=== PATIENT | female | born 1935 | race Hispanic/Latino ===

== ENCOUNTER 2017-06-24 07:55 | Day surgery (SDC) | payer MEDICARE, OTHER ==
[2017-06-16 08:30] VITALS: BMI 30.2
[~2017-06-24 07:55] MED LIST: Lactated Ringer's 500 ML IV ONE; Phenylephrine 2.5% Opht Soln OD SCH; Tropicamide 1% Opht SOLUTION OD SCH
[2017-06-24] MEDS ORDERED: Lactated Ringer's 500 ML IV ONE (08:53)
[2017-06-24] MEDS: Carbachol 0.01% IO ONE ×2 (09:41→10:15)
[2017-06-24] MEDS: Lidocaine 2% Inj (20ml) ONE ×2 (09:41→10:00)
[2017-06-24] MEDS: Hyaluronidase Human, Recombi 150 U/ML VIAL ONE ×2 (09:41→10:00)
[2017-06-24] MEDS: Tetracaine 0.5% Ophth (OR ONLY) ONE ×2 (09:41→10:00)
[2017-06-24] MEDS: Chondroitin/Hyaluronate Opth Syringe KIT (0.55 ml-0.5 ml) IO ONE ×2 (09:42→10:15)
[2017-06-24] MEDS: Tobramycin/Dexamethasone OPHT OINT ONE ×2 (09:42→10:15)
[2017-06-24] MEDS: Povidone Iodine Ophthalmic 5% Soln ONE ×2 (09:42→10:00)
[2017-06-24] MEDS: Chondroitin/Hyaluronate 40 mg/ml-30 mg/ml Ophth Syringe (0.5 ml) IO ONE ×2 (10:15→10:49)
[2017-06-24] MEDS ORDERED: Midazolam 2 MG/2 ML VIAL ONE (10:21)
[2017-06-24] MEDS ORDERED: Propofol 10 mg/ml Inj (20 ML) ONE (10:32)
[2017-06-24] MEDS ORDERED: Chondroitin/Hyaluronate 40 mg/ml-30 mg/ml Ophth Syringe (0.5 ml) IO ONE (10:43)
[2017-06-24 11:37] VITALS: RESP 18
[2017-06-24 12:21] VITALS: BP 110/59; PULSE 79; TEMP 98.4; O2SAT 98
--- NOTE | 2017-06-24 13:17 | OP ---
PROCEDURE DATE: 06/24/2017 PREOPERATIVE DIAGNOSIS: Hypermature cataract, right eye. POSTOPERATIVE DIAGNOSIS: Hypermature cataract, right eye. PROCEDURE: Complex extract extraction with VisionBlue, right eye for hypermaturity. SURGEON: Nikos Kelsey MD ESTIMATED BLOOD LOSS: 0 mL. PROCEDURE IN DETAIL: The patient was brought to the operating room and properly identified. Anesthesia staff administered intravenous sedation and retrobulbar block was given to the surgical eye. The patient was then prepped and draped in the usual sterile fashion. Attention was turned to the surgical eye. A lid speculum was placed into interpalpebral fissure. Sitting temporally, two paracentesis incisions were made. The anterior chamber was filled with viscoelastic and a triplanar clear corneal incision was made. Using a cystitome, anterior capsular leaflet was created. Utrata forceps were used to create a continuous curvilinear capsulorrhexis. Balanced salt solution on a cannula was used to hydrodissect and hydrodelineate the lens. The lens was then phacoemulsified with no complications. Automated irrigation and aspiration was used to remove the cortex. Viscoelastic was used to deepen the anterior chamber. The lens was placed in the capsular bag. Automated irrigation and aspiration was used to remove the viscoelastic. The anterior chamber was filled with Miochol. The wounds were hydrated with balanced salt solution. There was noted to be no leak at the end of the case and the lens was well positioned. The lid speculum was removed. The eye was given antibiotics and steroids and covered with a patch and shield. The patient was returned to the recovery room in stable condition. 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 These were in addition to the routine cataract surgery. Nikos Kelsey MD
== END 2017-06-24 12:00 | disposition home or self-care (01) ==
LOC: C.SDS 07:55
PROVIDERS: ATTEND Ophthalmology
DX: H25.21 Age-related cataract, morgagnian type, right eye (principal)
CPT/HCPCS: 66982; 82948; J2250; J2704; J3470; J7120

== ENCOUNTER 2017-07-22 06:24 | Day surgery (SDC) | payer MEDICARE, OTHER ==
[2017-06-16 08:30] VITALS: BMI 30.2
[~2017-07-22 06:24] MED LIST changes: -Lactated Ringer's 500 ML IV ONE; -Phenylephrine 2.5% Opht Soln OD SCH; +Phenylephrine 2.5% Opht Soln OS SCH; -Tropicamide 1% Opht SOLUTION OD SCH; +Tropicamide 1% Opht SOLUTION OS SCH
[2017-07-22] MEDS ORDERED: Lactated Ringer's 500 ML IV ONE (07:19)
[2017-07-22] MEDS ORDERED: Etomidate 20 mg/10ml Inj IV ONE (07:35)
[2017-07-22] MEDS ORDERED: Carbachol 0.01% IO ONE (07:37)
[2017-07-22] MEDS ORDERED: Povidone Iodine Ophthalmic 5% Soln ONE (07:37)
[2017-07-22] MEDS ORDERED: Lidocaine 2% Inj (20ml) ONE (07:38)
[2017-07-22] MEDS ORDERED: Tetracaine 0.5% Ophth (OR ONLY) ONE (07:38)
[2017-07-22] MEDS ORDERED: Tobramycin/Dexamethasone OPHT OINT ONE (07:38)
[2017-07-22] MEDS ORDERED: Hyaluronidase Human, Recombi 150 U/ML VIAL ONE (07:39)
[2017-07-22] MEDS ORDERED: Chondroitin/Hyaluronate Opth Syringe KIT (0.55 ml-0.5 ml) IO ONE (07:39)
[2017-07-22 07:51] VITALS: RESP 20
[2017-07-22] MEDS ORDERED: Chondroitin/Hyaluronate 40 mg/ml-30 mg/ml Ophth Syringe (0.5 ml) IO ONE (08:21)
[2017-07-22 09:14] VITALS: TEMP 98
[2017-07-22 09:37] VITALS: BP 108/66; PULSE 89; O2SAT 98
--- NOTE | 2017-07-23 16:57 | OP ---
PROCEDURE DATE: 07/22/2017 PREOPERATIVE DIAGNOSIS: Complex cataract, left eye. POSTOPERATIVE DIAGNOSIS: Complex cataract, left eye. OPERATIVE PROCEDURE: Complex cataract surgery using VisionBlue, left eye with intraocular lens. ATTENDING SURGEON: Nikos Kelsey MD ANESTHESIA: Retrobulbar block. COMPLICATIONS: None. PROCEDURE: The patient was brought to the operating room and properly identified. Anesthesia staff administered intravenous sedation and retrobulbar block was given to the surgical eye. The patient was then prepped and draped in the usual sterile fashion. Attention was turned to the surgical eye. A lid speculum was placed into interpalpebral fissure. Sitting temporally, two paracentesis incisions were made. The anterior chamber was filled with viscoelastic and a triplanar clear corneal incision was made. Using a cystitome, anterior capsular leaflet was created. Utrata forceps were used to create a continuous curvilinear capsulorrhexis. Balanced salt solution on a cannula was used to hydrodissect and hydrodelineate the lens. The lens was then phacoemulsified with no complications. Automated irrigation and aspiration was used to remove the cortex. Viscoelastic was used to deepen the anterior chamber. The lens was placed in the capsular bag. Automated irrigation and aspiration was used to remove the viscoelastic. The anterior chamber was filled with Miochol. The wounds were hydrated with balanced salt solution. There was noted to be no leak at the end of the case and the lens was well positioned. The lid speculum was removed. The eye was given antibiotics and steroids and covered with a patch and shield. The patient was returned to the recovery room in stable condition. 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 Nikos Kelsey MD
== END 2017-07-22 10:12 | disposition home or self-care (01) ==
LOC: C.SDS 06:24
PROVIDERS: ATTEND Ophthalmology
DX: H26.9 Unspecified cataract (principal); E11.9 Type 2 diabetes mellitus without complications
CPT/HCPCS: 66982; 82948; J3470; J7120; V2632